=== PATIENT | male | born 2000 | race Two or more races ===

== ENCOUNTER 2025-02-19 11:09 | Emergency (ER) | payer OTHER ==
[~2025-02-19] VITALS: Ht 165.1 cm; Wt 72.0 kg
[2025-02-19 11:15] VITALS: PULSE 99; RESP 13; O2SAT 96
--- NOTE | 2025-02-19 11:20 | ED.PDOC ---
Altered Mental Status HPI Comments 24 y/o M, presents to the ED for CC of ALOC. Per emergency medical personnel, patient was dropped off by an [employer] customer service driver, who was dropping the patient off at a rehabilitation center. In route to the rehabilitation center, patient became drowsy and lethargic completely face planting onto the floor of the vehicle; [employer] customer service driver than dropped patient off at the ED. Patient presented to the ED drowsy, lethargic, and nauseated with reports of hematemesis. On arrival he was intermittently alert but subsequently became non-responsive, through maintaining spontaneous respirations. When alert, patient exhibits periods of agitation and aggressive behavior. Per patient's girlfriend, patient has been using cocaine and drinking alcohol everyday since, Sunday (02/13/25). No other symptoms or modifying factors are obtainable at this time. Time Seen by MD: 11:00 Reviewed Notes: Nurses Notes, Medications, Allergies Allergies: Coded Allergies: UNOBTAINABLE (Unverified , 02/19/25) Information Source: Emergency Med Personnel Mode of Arrival: Wheelchair Severity: Moderate Timing: Minutes Duration: Minutes Prehospital treatment: None Quality: Decreased Alertness Recent: Nausea History of: None Associated Signs and Symptoms: None Past Medical History PAST MEDICAL HISTORY: Unknown Surgical History: Unknown Family History Family History: Unknown Social History Smoker: Unknown Alcohol: Unknown Drugs: Unknown Lives In: Unknown Unable to Obtain due to: Altered Mental Status Physical Exam General Appearance: Mild Distress, Other (Alcohol on the breath) HEENT: Normal ENT Inspection, Pharynx Normal, TMs Normal Neck: Full Range of Motion, Non-Tender, Normal, Normal Inspection Respiratory: Chest Non-Tender, Lungs Clear, No Accessory Muscle Use, No Respiratory Distress, Normal Breath Sounds Cardiovascular: No Edema, No JVD, No Murmur, No Gallop, Normal Peripheral Puls es, Regular Rate/Rhythm Breast Exam: Deferred Gastrointestinal: No Organomegaly, Non Tender, No Pulsatile Mass, Normal Bowel Sounds, Soft Genitalia: Deferred Pelvic: Deferred Rectal: Deferred Extremities: No calf tenderness, Normal capillary refill, Normal inspection, Normal range of motion, Non-tender, No pedal edema Musculoskeletal : Apperance: Normal 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 Was a procedure done?: No Differential Diagnosis (ALOC) Differential Diagnosis: Dehydration, Drug Overdose, ETOH Intoxication X-Ray, Labs, Meds, VS Vital Signs Date Time Temp Pulse Resp B/P (MAP) Pulse Ox O2 Delivery O2 Flow Rate FiO2 02/19/25 12:00 75 02/19/25 12:00 74 26 141/94 (110) 95 02/19/25 11:15 99 13 96 Room Air* 0 21 02/19/25 11:15 99 13 146/95 (112) 96 02/19/25 11:13 96 20 115/72 99 Lab Test 02/19/25 12:25 02/19/25 11:21 Range/Units Urine Color Colorless Yellow Urine Clarity Clear Clear Urine pH 6.5 5.0-9.0 Urine Specific [place] 1.003 1.001-1.035 Urine Protein Negative Negative Urine Ketones Negative Negative Urine Blood Negative Negative /uL Urine Nitrite Negative Negative Urine Bilirubin Negative Negative Urine Urobilinogen Normal Negative mg/dL Urine Leukocyte Esterase Negative Negative /uL Urine RBC <1 0 - 3 /hpf Urine Microscopic WBC < 1 0-3 /HPF Urine Squamous Epithelial Cells None seen <5 /hpf Urine Bacteria None seen None Seen /hpf Urine Glucose Normal Normal mg/dL Urine Opiates Screen Neg NEGATIVE Urine Fentanyl Screen Neg NEGATIVE Urine Barbiturates Screen Neg NEGATIVE Urine Phencyclidine Screen Neg NEGATIVE Urine Amphetamines Screen Neg NEGATIVE Urine Benzodiazepines Screen Neg NEGATIVE Urine Cocaine Screen Neg NEGATIVE Urine Cannabinoids Screen Neg NEGATIVE White Blood Count 6.4 4.4-10.8 10^3/uL Red Blood Count 4.84 4.5-5.90 10^6/uL Hemoglobin 14.6 13.5-17.5 g/dL Hematocrit 41.8 41.0-53.0 % Mean Corpuscular Volume 86.4 80.0-100.0 fL Mean Corpuscular Hemoglobin 30.3 28.0-32.0 pg Mean Corpuscular Hemoglobin Concent 35.0 32.0-36.0 g/dL Red Cell Distribution Width 13.5 11.8-14.3 % Platelet Count 257 140-450 10^3/uL Mean Platelet Volume 8.5 6.9-10.8 fL Neutrophils (%) (Auto) 52.1 37.0-80.0 % Lymphocytes (%) (Auto) 38.7 10.0-50.0 % Monocytes (%) (Auto) 8.1 0.0-12.0 % Eosinophils (%) (Auto) 0.1 0.0-7.0 % Basophils (%) (Auto) 1.0 0.0-2.0 % Neutrophils # (Auto) 3.3 1.6-8.6 10 ^3/uL Lymphocytes # (Auto) 2.5 0.4-5.4 10 ^3/uL Monocytes # (Auto) 0.5 0-1.3 10 ^3/uL Eosinophils # (Auto) 0 0-0.8 10 ^3/uL Basophils # (Auto) 0.1 0-0.2 10 ^3/uL Nucleated Red Blood Cells 0.0 % Sodium Level 147 H 136-145 mmol/L Potassium Level 3.6 3.5-5.1 mmol/L Chloride Level 104 98-107 mmol/L Carbon Dioxide Level 29 20-31 mmol/L Anion Gap 14 5-15 Blood Urea Nitrogen < 5 L 9-23 mg/dL Creatinine 0.63 L 0.700-1.30 mg/dL Glomerular Filtration Rate Calc 136 >90 mL/min BUN/Creatinine Ratio 7.9 L 10.0-20.0 Serum Glucose 99 74-106 mg/dL Calcium Level 9.3 8.7-10.4 mg/dL Plasma/Serum Blood Alcohol 485.7 *H <10 mg/dL Current Medications Medications (Trade) Dose Ordered Sig/Castillo Route Start Time Stop Time Status Last Admin Sodium Chloride 1,000 ml @ 1,000 mls/hr Q1H ONCE IVB 02/19/25 11:15 02/19/25 12:14 DC 02/19/25 11:29 Naloxone HCl (Narcan) 0.4 mg ONCE ONCE IV 02/19/25 11:15 02/19/25 11:16 DC 02/19/25 11:29 Ondansetron HCl (Zofran) 4 mg ONCE ONCE IV 02/19/25 12:45 02/19/25 12:46 DC 02/19/25 12:48 IV Hep-Lock was established The patient was given a 1 L bolus of normal saline The patient was given Narcan 0.4 mg IV push with no relief For the vomiting, the patient was given Zofran 4 mg IV push The patient's alcohol level was 485.7 The CBC and chemistry panel are within normal limits The urine tox is negative We did observe the patient here in the emergency department's. The patient was now awakened and states that he wants to go home. The patient is able to stand and ambulate without any difficulty We did tell him that he can go home with a family member and at this time we are waiting for them to arrived. The patient is being discharged with the family Time of 1ST Reevaluation: 11:30 Reevaluation 1ST: Unchanged Patient Education/Counseling: Diagnosis, Treatment, Prognosis, Need For Follow Up Family Education/Counseling: Diagnosis, Treatment, Prognosis, Need For Follow Up SEPSIS Sepsis Screen Physician Orders Wreath Machine Tender (02/19/25 11:12) Heplock Iv (02/19/25 11:12) Vital Signs Date Time Temp Pulse Resp B/P (MAP) Pulse Ox O2 Delivery O2 Flow Rate FiO2 02/19/25 12:00 75 02/19/25 12:00 74 26 141/94 (110) 95 02/19/25 11:15 99 13 96 Room Air* 0 21 02/19/25 11:15 99 13 146/95 (112) 96 02/19/25 11:13 96 20 115/72 99 Laboratory Tests Test 02/19/25 11:21 White Blood Count 6.4 10^3/uL (4.4-10.8) Medications Medications Dose Ordered Sig/Castillo Route Start Time Stop Time Status Last Admin Dose Admin Naloxone HCl 0.4 mg ONCE ONCE IV 02/19/25 11:15 02/19/25 11:16 DC 02/19/25 11:29 Ondansetron HCl 4 mg ONCE ONCE IV 02/19/25 12:45 02/19/25 12:46 DC 02/19/25 12:48 Sodium Chloride 1,000 ml @ 1,000 mls/hr Q1H ONCE IVB 02/19/25 11:15 02/19/25 12:14 DC 02/19/25 11:29 Departure 1 Departure Time of Disposition: 15:10 Impression: Primary Impression: Alcohol intoxication Qualified Codes: F10.920 - Alcohol use, unspecified with intoxication, uncomplicated Disposition: 01 HOME / SELF CARE / HOMELESS Condition: Fair Discharged With: Self Critical Care Note Critical Care Time?: No Stability Stability form required: No Heart Score Heart Score: Heart Score Response (Comments) Value History N/A 0 EKG N/A 0 Age N/A 0 Risk Factors N/A 0 Troponin N/A 0 Total 0 I personally scribed for GAGE OBREGON MD ([email or web address]) on 02/19/25 at 11:20. Electronically submitted by Yudith Araiza ([email or web address]). I personally scribed for GAGE OBREGON MD ([email or web address]) on 02/19/25 at 11:25. E lectronically submitted by Yudith Araiza ([email or web address]). I personally scribed for GAGE OBREGON MD ([email or web address]) on 02/19/25 at 11:52. Carmina ctronically submitted by Yudith Araiza ([email or web address]). GAGE OBREGON MD Feb 19, 2025 11:20
[2025-02-19] MEDS: NALOXONE HCL 0.4 MG/ML VIAL IV ONE (11:29)
[2025-02-19] MEDS: SODIUM CHLORIDE 0.9% 1,000 ML IVB ONE (11:29)
[2025-02-19 11:35] LABS: Hematocrit 41.8 % (41.0-53.0); Hemoglobin 14.6 g/dL (13.5-17.5); Mean Corpuscular Hemoglobin 30.3 pg (28.0-32.0); Mean Corpuscular Volume 86.4 fL (80.0-100.0); Nucleated Red Blood Cells % 0.0 %
[2025-02-19 11:45] LABS: Chloride 104 mmol/L (98-107); Potassium 3.6 mmol/L (3.5-5.1)
[2025-02-19 11:46] LABS: Anion Gap 14 (5-15); Calcium 9.3 mg/dL (8.7-10.4); Carbon Dioxide 29 mmol/L (20-31)
[2025-02-19 11:51] LABS: Glucose 99 mg/dL (74-106)
[2025-02-19 11:53] LABS: BUN/Creatinine Ratio 7.9 (10.0-20.0); Blood Urea Nitrogen < 5 mg/dL (9-23); Sodium 147 mmol/L (136-145)
[2025-02-19] MEDS: ONDANSETRON HCL 4 MG/2 ML VIAL IV ONE (12:48)
[2025-02-19 13:22] LABS: Urine Protein, UAD Negative (Negative)
[2025-02-19 13:24] LABS: Amphetamine Screen, Urine Neg (NEGATIVE); Barbiturate Scree,Urine Neg (NEGATIVE); Benzodiazephine Screen, Urine Neg (NEGATIVE); Cannabinoid Screen, Urine Neg (NEGATIVE); Cocaine Screen, Urine Neg (NEGATIVE); Opiate Scree,Urine Neg (NEGATIVE); Phencyclidine Screen, Urine Neg (NEGATIVE)
[2025-02-19 13:30] VITALS: BP 140/65; PULSE 85; RESP 16; TEMP 98.2; O2SAT 97
== END 2025-02-19 16:27 | disposition home or self-care (01) ==
LOC: ER 11:09
DX: F10.129 Alcohol abuse with intoxication, unspecified (principal); Y90.8 Blood alcohol level of 240 mg/100 ml or more
CPT/HCPCS: 36415; 80048; 80307; 80320; 81001; 85025; 96361; 96374; 96375; 99284; J2312; J2405; J7030